=== PATIENT | female | born 1945 | race Caucasian/White ===

== ENCOUNTER → 2018-12-05 | Outpatient (CLI) | payer MEDICARE, OTHER ==
[~2018-12-05] MED LIST: AMLO10 PO; AMOCLA875 PO; ATEN100 PO; LATA.005SO OD; LOSARTAN/HCTZ; NEBI5 PO; POTCHL20ER PO; PSEU120ER PO; RXTRAM50 PO; SERT25 PO; SPIHYD PO
== END | disposition home or self-care (01) ==
LOC: PLD 10:38 → LAB SHORT 10:38
DX: L82.0 Inflamed seborrheic keratosis (principal)
CPT/HCPCS: 88305

== ENCOUNTER 2019-04-20 03:29 | Emergency (ER) | payer MEDICARE, OTHER ==
[~2019-04-20] VITALS: Ht 157.5 cm; Wt 49.9 kg
[2019-04-20] MEDS ORDERED: IRBESARTAN150 MG PO (03:40)
[2019-04-20 04:21] LABS: BASOPHILS ABSOLUTE AUTO 0.04 K/mm3 (0.00-0.23); BASOPHILS PERCENT AUTO 0 % (0-2); EOSINOPHILS ABSOLUTE AUTO 0.02 K/mm3 (0.00-0.68); EOSINOPHILS PERCENT AUTO 0 % (0-6); Hematocrit 45.4 % (33.0-51.0); Hemoglobin 15.2 g/dL (11.5-16.0); IMMATURE GRAN ABSOLUTE AUTO 0.09 K/mm3 (0.00-0.10); IMMATURE GRAN PERCENT AUTO 1 % (0-1); LYMPHOCYTES ABSOLUTE AUTO 0.78 K/mm3 (0.84-5.20); LYMPHOCYTES PERCENT AUTO 6 % (21-46); MONOCYTES ABSOLUTE AUTO 0.75 K/mm3 (0.16-1.47); MONOCYTES PERCENT AUTO 6 % (4-13); Mean Corpuscular HGB 29.3 pg (26.0-34.0); Mean Corpuscular HGB Conc 33.5 g/dL (31.5-36.5); Mean Corpuscular Volume 88 fL (80-100); Mean Platelet Volume 10.6 fL (9.1-12.4); NEUTROPHILS ABSOLUTE AUTO 11.64 K/mm3 (1.96-9.15); NEUTROPHILS PERCENT AUTO 87 % (41-73); Platelet Count 219 K/mm3 (150-400); RDW Coefficient Variation 13.2 % (11.7-14.2); RDW Standard Deviation 41.9 fL (35.1-46.3); Red Blood Cell Count 5.19 M/mm3 (3.80-5.20); White Blood Cell Count 13.32 K/mm3 (4.00-11.30)
[2019-04-20 05:12] LABS: Alanine Aminotransfer (ALT/SGP 34 U/L (12-78); Albumin, Blood 3.8 g/dL (3.4-5.0); Albumin/Globulin Ratio 1.2 (0.8-1.8); Alk Phos 71 U/L (50-136); Anion Gap 8 mmol/L (6-16); Aspartate Aminotrans (AST/SGOT 21 U/L (12-37); Bilirubin, Total 0.4 mg/dL (0.1-1.0); Blood Urea Nitrogen 18 mg/dL (8-24); Bun/Creatinine Ratio 31.3 (12.0-20.0); CO2, Blood 26 mmol/L (21-32); Calcium, Blood 8.7 mg/dL (8.5-10.1); Chloride, Blood 110 mmol/L (98-108); Creatinine, Blood 0.58 mg/dL (0.40-1.00); Globulin, Blood 3.1 g/dL (2.2-4.0); Glomerular Filtration Rate >60 (60-); Glucose, Blood 121 mg/dL (70-99); Potassium, Blood 3.4 mmol/L (3.5-5.5); Sodium, Blood 144 mmol/L (136-145); Total Protein, Blood 6.9 g/dL (6.4-8.2)
[2019-04-20] MEDS ORDERED: ONDA4ODT MM (05:23)
== END 2019-04-20 06:06 | disposition home or self-care (01) ==
LOC: ER 03:29
PROVIDERS: Emergency Medicine
DX: R19.7 Diarrhea, unspecified (principal); R11.2 Nausea with vomiting, unspecified; E86.0 Dehydration; I10 Essential (primary) hypertension
CPT/HCPCS: 36415; 80053; 85025; 96361; 96374; 99283-25; A9270-GY; J2405; J7120

== ENCOUNTER → 2019-04-25 | Outpatient (CLI) | payer MEDICARE, OTHER ==
[~2019-04-25] MED LIST changes: +IRBESARTAN150 MG PO; +ONDA4ODT MM
== END | disposition home or self-care (01) ==
LOC: LAB SHORT 15:12 → PLD 15:12
DX: L82.1 Other seborrheic keratosis (principal)
CPT/HCPCS: 88305

== ENCOUNTER → 2019-06-06 | Outpatient (CLI) | payer MEDICARE, OTHER ==
[2019-06-07 14:20] LABS: Stool Occult Bld Immuno 1 Negative (NEGATIVE)
== END ==
LOC: LAB EV 08:10
PROVIDERS: Internal Medicine
DX: Z12.11 Encounter for screening for malignant neoplasm of colon (principal)
CPT/HCPCS: G0328

== ENCOUNTER → 2020-11-20 | Outpatient (CLI) | payer MEDICARE, OTHER | END | disposition home or self-care (01) | LOC: LAB 13:54 → LAB SHORT 13:54 | DX: L82.1 Other seborrheic keratosis (principal); D36.10 Benign neoplasm of peripheral nerves and autonomic nervous system, unspecified | CPT/HCPCS: 88305 ==

== ENCOUNTER 2022-09-22 19:46 | Inpatient (IN) | payer MEDICARE, OTHER ==
[~2022-09-22] VITALS: Ht 157.5 cm; Wt 55.2 kg
--- NOTE | 2022-09-22 00:15 | NUR ---
ADMIT NOTE PT SETTLED INTO ROOM, ADMISSION COMPLETE AND PRE OP SURIGCAL INFECTION INTERVENTION COMPLETE. PT REPORTS PAIN 7 (0-10) BUT DECLINES ANYTHING FOR PAIN. PT HAS HAD THREE INCONTINENT VOIDS SINCE ARRIVING TO THE UNIT. VITALS ARE STABLE. CALL FROM OUTCOMES SPECIALISTADONAY PEOPLES SHORTLY AFTER PT ARRIVAL THAT PT WOULD NEED TO TRANSFER TO ANOTHER FACILITY THERE IS NO ORTHOPEDIC SURGEON AT OUR FACILITY SHALLOT CLEANER WHO COULD PERFROM SURGERY. LEYDIRA PAPERWORK BEING INITIATED AT THIS TIME. WILL CALL RECEIVING RN FOR REPORT, CHARGE NURSE TO INITIATE TRANSPORT. PT STABLE AND RESTING IN BED AT THIS TIME. PT MADE AWARE OF NEED FOR TRANSFER.
[2022-09-22] MEDS ORDERED: LATANOPROST2.5 M3 BOTHEYES (20:01)
[2022-09-22] MEDS ORDERED: AMLODIPINE BESYL5 MG PO (20:01)
[2022-09-22] MEDS ORDERED: IRBESARTAN300 M3 PO (20:01)
[2022-09-22 21:45] LABS: BASOPHILS ABSOLUTE AUTO 0.03 K/mm3 (0.00-0.23); BASOPHILS PERCENT AUTO 0 % (0-2); EOSINOPHILS ABSOLUTE AUTO 0.01 K/mm3 (0.00-0.68); EOSINOPHILS PERCENT AUTO 0 % (0-6); Hematocrit 40.4 % (33.0-51.0); Hemoglobin 13.9 g/dL (11.5-16.0); IMMATURE GRAN ABSOLUTE AUTO 0.06 K/mm3 (0.00-0.10); IMMATURE GRAN PERCENT AUTO 1 % (0-1); LYMPHOCYTES ABSOLUTE AUTO 1.25 K/mm3 (0.84-5.20); LYMPHOCYTES PERCENT AUTO 13 % (21-46); MONOCYTES ABSOLUTE AUTO 0.73 K/mm3 (0.16-1.47); MONOCYTES PERCENT AUTO 7 % (4-13); Mean Corpuscular HGB Conc 34.4 g/dL (31.5-36.5); Mean Corpuscular Volume 84 fL (80-100); NEUTROPHILS ABSOLUTE AUTO 7.92 K/mm3 (1.96-9.15); NEUTROPHILS PERCENT AUTO 79 % (41-73); Platelet Count 235 K/mm3 (150-400); RDW Coefficient Variation 13.5 % (11.7-14.2); RDW Standard Deviation 41.9 fL (35.1-46.3); Red Blood Cell Count 4.79 M/mm3 (3.80-5.20)
[2022-09-22 22:13] LABS: Albumin, Blood 3.9 g/dL (3.4-5.0); Albumin/Globulin Ratio 1.2 (0.8-1.8); Bilirubin, Total 0.4 mg/dL (0.1-1.0); Bun/Creatinine Ratio 36.2 (12.0-20.0); Creatinine, Blood 0.53 mg/dL (0.40-1.00); Globulin, Blood 3.2 g/dL (2.2-4.0); Potassium, Blood 3.8 mmol/L (3.5-5.5); Total Protein, Blood 7.1 g/dL (6.4-8.2)
[2022-09-22 23:32] VITALS: BP 156/72
[2022-09-23 00:48] VITALS: BP 156/72
[2022-09-23 01:30] VITALS: BP 156/72
--- NOTE | 2022-09-23 01:45 | NUR ---
COBRA TRANSFER PT TO TRANSFER TO [facility] IN [place]. 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 COBRA PAPERWORK COMPLETED BY COLLEGE SPECIALIST. BELONGINGS IN PLACE WITH PT. PT IS IN STABLE CONDITION. PT EXPRESSED UNDERSTANDING OF REASONS FOR TRANSFER, AND IS IN AGREEANCE. PAPER WORK HAS BEEN SIGNED. PT NOTIFIED HER OF TRANSER. REPORT CALLED TO RECEIVING ADONAY SIEGEL AT 0110. PT INCONTINENT OF URINE AND WAS CHANGED BEFORE TRANSFER. PT DECLINES ANYTHING FOR PAIN WHEN OFFERED. PT TRANSFERRED OUT BY [facility] AT 0145, BELONGINGS WITH PT.
== END 2022-09-23 01:48 | disposition home or self-care (01) | DRG 536 ==
LOC: ER 19:46 → SURS 23:09
PROVIDERS: Student in an Organized Health Care Education/Training Program; ADMIT Internal Medicine
DX: S72.002A Fracture of unspecified part of neck of left femur, initial encounter for closed fracture (principal); W18.30XA Fall on same level, unspecified, initial encounter; I10 Essential (primary) hypertension; H40.9 Unspecified glaucoma; G71.00 Muscular dystrophy, unspecified; Z98.890 Other specified postprocedural states; Z88.0 Allergy status to penicillin; Z79.899 Other long term (current) drug therapy
CPT/HCPCS: 72170; 73552; 80053; 85025; 93005; 93010; 96374; 99285-25; A9270; J3010; J7030

== ENCOUNTER 2023-08-05 09:13 | Day surgery (SDC) | payer MEDICARE ==
[~2023-08-05] VITALS: Ht 157.5 cm; Wt 55.1 kg
[~2023-08-05 09:13] MED LIST changes: +AMLODIPINE BESYL5 MG PO; +Dexamethasone Sod Phos 10 MG/ML 1ML VIAL ONE; +FentaNYL Citrate 50 MCG/ML 2 ML Injection ONE; +IRBESARTAN300 M3 PO; +LATANOPROST2.5 M3 BOTHEYES; +Lactated Ringer's 1,000 ML IV ONE; +Ondansetron HCl 2 MG / ML 2ML Vial ONE; +Ropivacaine 0.5% HCl/Pf 5 MG/ML 20ML VIAL ONE; +propofoL 20 ML IV ONE
[2023-08-05] MEDS ORDERED: Clindamycin 900mg in D5W 50ML 50 ML IV ONE (09:41)
[2023-08-05] MEDS ORDERED: Lactated Ringer's 1,000 ML IV ONE (09:58)
[2023-08-05] MEDS ORDERED: METO50 PO (10:04)
[2023-08-05] MEDS ORDERED: HYDROCHLOROTHIA25 MG PO (10:04)
[2023-08-05] MEDS ORDERED: POTA10T PO (10:05)
--- NOTE | 2023-08-05 10:28 | NUR ---
08/05/23 Belinda8 Gloria Mckeon 20ML OF ROPIVACAINE 0.5% MIXED AND VERIFIED WITH 0.1ML OF EPI (1MG/ML) TO MAKE ROPIVACAINE 0.5% WITH EPI 1:200,000 FOR INJECTION AT THE OPSITE BY DR CHAVARRIA.
[2023-08-05] MEDS ORDERED: EPINEPhrine HCl 1 MG/ML 1ML Amp XX ONE (10:32)
[2023-08-05] MEDS ORDERED: Ropivacaine 0.5% HCl/Pf 5 MG/ML 20ML VIAL INJ ONE (10:32)
[2023-08-05 11:12] VITALS: BP 140/63
--- NOTE | 2023-08-05 12:16 | NUR ---
08/05/23 1216 Jatin Abdi PT ADVISED TO MONITOR B/P AT HOME AND FOLLOW UP WITH PCP IF NEEDED. SHE REPORTED "ACHE, BUT NOT PAIN" IN R FOOT IN SDU BUT DESCRIBED SNESATION TOLERABLE. SHE DENIED NAUSEA.
== END 2023-08-05 12:10 | disposition home or self-care (01) ==
LOC: ORSCSDS 09:13
PROVIDERS: Podiatrist Foot & Ankle Surgery
PROC: 0SGP04Z Fusion of Right Toe Phalangeal Joint with Internal Fixation Device, Open Approach (ICD-10-PCS; principal; 2023-08-05 10:45)
DX: M20.41 Other hammer toe(s) (acquired), right foot (principal); I10 Essential (primary) hypertension; Z86.73 Personal history of transient ischemic attack (TIA), and cerebral infarction without residual deficits; G71.00 Muscular dystrophy, unspecified; Z79.899 Other long term (current) drug therapy
CPT/HCPCS: C1776; J0171; J1100; J2405; J2704; J2795; J3010; J7120

== ENCOUNTER 2024-07-10 16:37 | Observation (INO) | payer MEDICARE ==
[~2024-07-10] VITALS: Ht 157.5 cm; Wt 57.7 kg
[~2024-07-10 16:37] MED LIST changes: -Dexamethasone Sod Phos 10 MG/ML 1ML VIAL ONE; -FentaNYL Citrate 50 MCG/ML 2 ML Injection ONE; +HYDROCHLOROTHIA25 MG PO; -Lactated Ringer's 1,000 ML IV ONE; +METO50 PO; -Ondansetron HCl 2 MG / ML 2ML Vial ONE; +POTA10T PO; -Ropivacaine 0.5% HCl/Pf 5 MG/ML 20ML VIAL ONE; -propofoL 20 ML IV ONE
[2024-07-10 16:55] LABS: BASOPHILS ABSOLUTE AUTO 0.03 K/mm3 (0.00-0.23); BASOPHILS PERCENT AUTO 1 % (0-2); EOSINOPHILS ABSOLUTE AUTO 0.02 K/mm3 (0.00-0.68); EOSINOPHILS PERCENT AUTO 0 % (0-6); Hematocrit 39.6 % (33.0-51.0); Hemoglobin 13.7 g/dL (11.5-16.0); IMMATURE GRAN ABSOLUTE AUTO 0.02 K/mm3 (0.00-0.10); IMMATURE GRAN PERCENT AUTO 0 % (0-1); LYMPHOCYTES ABSOLUTE AUTO 1.53 K/mm3 (0.84-5.20); LYMPHOCYTES PERCENT AUTO 24 % (21-46); MONOCYTES ABSOLUTE AUTO 0.58 K/mm3 (0.16-1.47); MONOCYTES PERCENT AUTO 9 % (4-13); Mean Corpuscular HGB 30.1 pg (26.0-34.0); Mean Corpuscular HGB Conc 34.6 g/dL (31.5-36.5); Mean Corpuscular Volume 87 fL (80-100); Mean Platelet Volume 10.3 fL (9.1-12.4); NEUTROPHILS ABSOLUTE AUTO 4.22 K/mm3 (1.96-9.15); NEUTROPHILS PERCENT AUTO 66 % (41-73); Platelet Count 242 K/mm3 (150-400); RDW Coefficient Variation 12.7 % (11.7-14.2); RDW Standard Deviation 40.2 fL (35.1-46.3); Red Blood Cell Count 4.55 M/mm3 (3.80-5.20)
[2024-07-10 17:10] LABS: International Normalized Ratio 0.94; Prothrombin Time Results 10.1 Sec (9.7-11.5)
[2024-07-10 17:23] LABS: Albumin/Globulin Ratio 1.2 (0.8-1.8); Bilirubin, Total 0.5 mg/dL (0.1-1.0); Bun/Creatinine Ratio 22.8 (12.0-20.0); Calcium, Blood 9.5 mg/dL (8.5-10.1); Creatinine, Blood 0.66 mg/dL (0.40-1.00); Globulin, Blood 3.2 g/dL (2.2-4.0); Potassium, Blood 4.1 mmol/L (3.5-5.5); Total Protein, Blood 7.2 g/dL (6.4-8.2)
[2024-07-10] MEDS ORDERED: Ondansetron HCl 2 MG / ML 2ML Vial IV PRN (20:25)
[2024-07-10] MEDS ORDERED: SPIRONOLACTONE50 MG PO (20:48)
[2024-07-10] MEDS ORDERED: Metoprolol Tartrate 50 MG Tab PO SCH (21:00)
[2024-07-10] MEDS ORDERED: Losartan Potassium 25 MG Tab PO SCH (21:00)
[2024-07-10] MEDS ORDERED: Metoprolol Tartrate 25 MG Tab PO SCH (21:00)
[2024-07-10] MEDS ORDERED: METO25ER PO (21:18)
[2024-07-10 21:47] VITALS: BP 131/63
[2024-07-11 00:53] VITALS: BP 121/60
[2024-07-11 04:19] VITALS: BP 138/59
--- NOTE | 2024-07-11 06:15 | NUR ---
Shift Summary Pt admitted from ED for chest pain. She is under observation and anticipates a stress test today. She has been NPO since 0000. She is on tele running SR in the 70s while up with multiform PVC and while asleep us running sinus gris 45-55 with a bundle branch block per tele monitor. Pt is AOx4, independent in the room. She states no chest pain or pressure t/o the night.
[2024-07-11 07:28] VITALS: BP 145/62
[2024-07-11] MEDS ORDERED: Aspirin 81 MG Chew PO SCH (09:00)
[2024-07-11] MEDS ORDERED: Enoxaparin 40 MG/0.4 ML SYR SC SCH (09:00)
[2024-07-11 12:39] VITALS: BP 137/53
[2024-07-11 15:49] VITALS: BP 138/46
--- NOTE | 2024-07-11 18:41 | NUR ---
SHIFT SUMMARY PT A&OX4, VSS, AMB IND, TOLERATING PO, VOIDING, AND DENIED PAIN. PRIOR TO TELE D/C, PT IN SR W/ BIGEMINY PVC. PT TO BE NPO AFTER MIDNIGHT FOR SECOND PART OF STRESS TEST. CALL LIGHT WITHIN REACH AND PT ABLE TO MAKE NEEDS KNOWN.
[2024-07-11 19:50] VITALS: BP 134/62
[2024-07-12 04:35] VITALS: BP 138/71
[2024-07-12 05:00] LABS: BASOPHILS ABSOLUTE AUTO 0.04 K/mm3 (0.00-0.23); BASOPHILS PERCENT AUTO 1 % (0-2); EOSINOPHILS ABSOLUTE AUTO 0.09 K/mm3 (0.00-0.68); EOSINOPHILS PERCENT AUTO 2 % (0-6); Hematocrit 37.3 % (33.0-51.0); Hemoglobin 12.6 g/dL (11.5-16.0); IMMATURE GRAN ABSOLUTE AUTO 0.01 K/mm3 (0.00-0.10); IMMATURE GRAN PERCENT AUTO 0 % (0-1); LYMPHOCYTES PERCENT AUTO 37 % (21-46); MONOCYTES ABSOLUTE AUTO 0.65 K/mm3 (0.16-1.47); MONOCYTES PERCENT AUTO 12 % (4-13); Mean Corpuscular HGB 29.9 pg (26.0-34.0); Mean Corpuscular HGB Conc 33.8 g/dL (31.5-36.5); Mean Corpuscular Volume 89 fL (80-100); Mean Platelet Volume 10.6 fL (9.1-12.4); NEUTROPHILS ABSOLUTE AUTO 2.61 K/mm3 (1.96-9.15); NEUTROPHILS PERCENT AUTO 48 % (41-73); Platelet Count 210 K/mm3 (150-400); RDW Coefficient Variation 12.8 % (11.7-14.2); RDW Standard Deviation 41.7 fL (35.1-46.3); Red Blood Cell Count 4.21 M/mm3 (3.80-5.20)
[2024-07-12 06:13] LABS: Bun/Creatinine Ratio 26.3 (12.0-20.0); Calcium, Blood 8.7 mg/dL (8.5-10.1); Creatinine, Blood 0.8 mg/dL (0.40-1.00); Potassium, Blood 4.1 mmol/L (3.5-5.5)
[2024-07-12 07:31] VITALS: BP 129/54
[2024-07-12] MEDS ORDERED: Aminophylline 250MG / 10ML 10 ML Vial ONE (07:38)
[2024-07-12] MEDS ORDERED: Regadenoson 0.4 MG/5 ML SYRINGE ONE (07:38)
[2024-07-12] MEDS ORDERED: Enoxaparin 40 MG/0.4 ML SYR SC SCH ×2 (09:00→21:00)
--- NOTE | 2024-07-12 10:45 | NUR ---
pt laying in bed, will be having a stress test today, a/ox4, pleasant and cooperative with care, follows commands well, denies pain, states no chest pain since ntg was given when she first came in, lungs are clear t/o, resp even and unlabored, no cough noted, hrr, no edema noted, ppp+1, cap refill<3 sec, vs stable, afebrile, piv to rac site is clear and patent, btx4, abd flat soft nontender, voids without diff, skin c/w/d, mallory lovett, call light in reach, will be completeing stress test today.
[2024-07-12] MEDS ORDERED: ASPI81CH PO (14:17)
--- NOTE | 2024-07-12 15:18 | NUR ---
Pt has been discharged to home, Dr. Foley spoke with pt about results of stress test, zio patch was placed, went over discharge instructions with her, she verbalized understanding, piv removed intact, left via wheelchair with nurse in attendence with all her belongings.
== END 2024-07-12 15:50 | disposition home or self-care (01) ==
LOC: ER 16:37 → MEDS 16:38 → ERHOLD 16:38 → MEDS 21:31
PROVIDERS: Student in an Organized Health Care Education/Training Program; ADMIT Student in an Organized Health Care Education/Training Program
DX: R07.89 Other chest pain (principal); I10 Essential (primary) hypertension; G71.00 Muscular dystrophy, unspecified; E78.5 Hyperlipidemia, unspecified; Z88.0 Allergy status to penicillin; Z79.899 Other long term (current) drug therapy
CPT/HCPCS: 36415; 71045; 78452; 80048; 80053; 84484; 85025; 85610; 85730; 93005; 93010; 93017; 93246; 96372; 99285-25; A9270; A9500; G0378; J0280; J1650; J2785

== ENCOUNTER 2024-08-22 09:21 | Emergency (ER) | payer MEDICARE ==
[~2024-08-22] VITALS: Ht 157.5 cm; Wt 56.7 kg
[~2024-08-22 09:21] MED LIST changes: +ASPI81CH PO; +METO25ER PO; +SPIRONOLACTONE50 MG PO
[2024-08-22 09:55] VITALS: BP 185/107
[2024-08-22] MEDS ORDERED: Cipro500 MG PO (12:07)
[2024-08-22] MEDS ORDERED: Flagyl500 MG PO (12:07)
== END 2024-08-22 12:53 | disposition home or self-care (01) ==
LOC: ER 09:21
DX: I10 Essential (primary) hypertension (principal); Z79.82 Long term (current) use of aspirin; Z79.899 Other long term (current) drug therapy; Z88.0 Allergy status to penicillin
CPT/HCPCS: 99283